=== PATIENT | female | born 1995 | race Hispanic/Latino ===

== ENCOUNTER 2019-01-01 21:47 | Emergency (ER) | payer SELFPAY ==
[2019-01-01 22:03] VITALS: TEMP 98.5; O2SAT 98
--- NOTE | 2019-01-01 22:15 | ED.PDOC ---
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 The vomiting elicited an acute on chronic anxiety attack. The anxiety has mostly resolved by presentation. The attacks usually last about 15-20 minutes. The patient said that she also noticed that her ankles were swollen. She says that this has happened before. She had vague abdominal pain around the time of vomiting. It is supraumbilical. She is unable to describe the quality. She has had multiple previous episodes over the past year that are not associated with any particular timing or context. They usually resolve on their own. She also says that the vomiting only occurs in the evening and has been occurring 3-4 times per week for over a year. She thinks it has to do with the fact that she had a surgical just over a year ago. She denies ever having been screened for diabetes mellitus but she says that her mother has it. No dysur ia/anuria/frequency. No other complaints. Timing/Duration: 1/2 hour Severity: mild Improving Factors: nothing Worsening Factors: nothing Associated Symptoms: other - see HPI Allergies/Adverse Reactions: Allergies NO KNOWN ALLERGY Allergy (Verified 01/01/19 22:03) Home Medications: Ambulatory Orders Sulfa/Trimeth 800/160 (Ds) Tab [Bactrim DS] 1 tablet PO BID #5 tab 01/01/19 Review of Systems - Review of Systems Constitutional: States: no symptoms reported EENTM: States: no symptoms reported Respiratory: States: no symptoms reported Cardiology: States: edema Gastrointestinal/Abdominal: States: see HPI Genitourinary: States: no symptoms reported Musculoskeletal: States: no symptoms reported Skin: States: no symptoms reported Neurological: States: anxiety Endocrine: States: unexplained weight gain Hematologic/Lymphatic: States: no symptoms reported Past Medical History (General) - Patient Medical History Hx Seizures: No Hx Stroke: No Hx Dementia: No Hx Asthma: Yes - childhood Hx of COPD: No Hx Cardiac Disorders: No Hx Congestive Heart Failure: No Hx Pacemaker: No Hx Hypertension: No Hx Thyroid Disease: No Hx Diabetes: No Hx Gastroesophageal Reflux: No Hx Renal Disease: No Hx Cancer: No Hx of HIV: No Hx Hepatitis C: No Hx MRSA: No Surgical History: no surgical history - Vaccination History Hx Tetanus, Diphtheria Vaccination: No Hx Influenza Vaccination: No - Social History Hx Tobacco Use: No Hx Alcohol Use: No Hx Substance Use: No - Female History Patient is a Female of Child Bearing Age (10 -59 yrs old): Yes Patient : No Family Medical History - Family History Mother Family History: Unknown Living Status: Still Living Hx Family Diabetes: Yes Physical Exam - Physical Exam General Appearance: Alert Eye Exam: bilateral normal Ears, Nose, Throat: normal ENT inspection Neck: non-tender, full range of motion, supple Respiratory: chest non-tender, lungs clear, normal breath sounds Cardiovascular/Chest: normal peripheral pulses, regular rate, rhythm, other - trace bipedal edema Gastrointestinal/Abdominal: normal bowel sounds, non tender, soft, other - morbi dly obese Back Exam: normal inspection, no CVA tenderness Extremity: normal range of motion, non-tender, pedal edema Neurologic: commissioner of conciliation II-XII nml as tested, no motor/sensory deficits, alert, normal mood/affect, oriented x 3 Skin Exam: normal color Lymphatic: no adenopathy Progress - Progress Progress: 01/01/19 23:32 Laboratory Tests 01/01/19 01/01/19 01/01/19 22:09 22:12 22:14 WBC 6.5 RBC 4.45 Hgb 13.2 Hct 39.1 MCV 87.8 MCH 29.6 MCHC 33.7 RDW 13.5 Plt Count 243 MPV 9.1 Absolute Neuts (auto) 2.90 Absolute Lymphs (auto) 2.70 Absolute Monos (auto) 0.60 Absolute Eos (auto) 0.30 Absolute Basos (auto) 0.00 Neutrophils % 43.9 Lymphocytes % 41.4 Monocytes % 9.7 H Eosinophils % 4.3 Basophils % 0.7 Sodium Potassium Chloride Carbon Dioxide Anion Gap BUN Creatinine BUN/Creatinine Ratio POC Glucose Random Glucose Hemoglobin A1c Serum Osmolality Calcium Total Bilirubin AST ALT Alkaline Phosphatase B-Natriuretic Peptide Serum Total Protein Albumin Globulin Albumin/Globulin Ratio Lipase TSH Thyroxine (T4) Urine Color Yellow Urine Appearance Cloudy H Urine pH 7.0 Ur Specific [place] 1.020 Urine Protein Trace Urine Glucose (UA) Negative Urine Ketones Negative Urine Blood Trace-intact H Urine Nitrite Negative Urine Bilirubin Negative Urine Urobilinogen 0.2 Ur Leukocyte Esterase Moderate H Urine RBC 1-3 Urine WBC 20-30 H Ur Epithelial Cells 5-10 Urine Bacteria 2+ H Urine Mucus Small Urine HCG, Qual Negative 01/01/19 01/01/19 01/01/19 22:14 22:14 22:14 WBC RBC Hgb Hct MCV MCH MCHC RDW Plt Count MPV Absolute Neuts (auto) Absolute Lymphs (auto) Absolute Monos (auto) Absolute Eos (auto) Absolute Basos (auto) Neutrophils % Lymphocytes % Monocytes % Eosinophils % Basophils % Sodium 138 Potassium 3.1 L Chloride 105 Carbon Dioxide 23 Anion Gap 13.1 BUN 7 Creatinine 0.41 L BUN/Creatinine Ratio 17.1 POC Glucose Random Glucose 125 H Hemoglobin A1c 5.3 Serum Osmolality 275.1 Calcium 8.4 Total Bilirubin 0.5 AST 42 ALT 80 H Alkaline Phosphatase 88 B-Natriuretic Peptide 14.5 Serum Total Protein 7.6 Albumin 3.8 Globulin 3.8 H Albumin/Globulin Ratio 1.0 L Lipase 24 TSH 2.64 Thyroxine (T4) 7.93 Urine Color Urine Appearance Urine pH Ur Specific [place] Urine Protein Urine Glucose (UA) Urine Ketones Urine Blood Urine Nitrite Urine Bilirubin Urine Urobilinogen Ur Leukocyte Esterase Urine RBC Urine WBC Ur Epithelial Cells Urine Bacteria Urine Mucus Urine HCG, Qual 01/01/19 22:20 WBC RBC Hgb Hct MCV MCH MCHC RDW Plt Count MPV Absolute Neuts (auto) Absolute Lymphs (auto) Absolute Monos (auto) Absolute Eos (auto) Absolute Basos (auto) Neutrophils % Lymphocytes % Monocytes % Eosinophils % Basophils % Sodium Potassium Chloride Carbon Dioxide Anion Gap BUN Creatinine BUN/Creatinine Ratio POC Glucose 116 H Random Glucose Hemoglobin A1c Serum Osmolality Calcium Total Bilirubin AST ALT Alkaline Phosphatase B-Natriuretic Peptide Serum Total Protein Albumin Globulin Albumin/Globulin Ratio Lipase TSH Thyroxine (T4) Urine Color Urine Appearance Urine pH Ur Specific [place] Urine Protein Urine Glucose (UA) Urine Ketones Urine Blood Urine Nitrite Urine Bilirubin Urine Urobilinogen Ur Leukocyte Esterase Urine RBC Urine WBC Ur Epithelial Cells Urine Bacteria Urine Mucus Urine HCG, Qual No laboratory results to explain the patient's symptoms. LFTs, BNP, and urine protein were not elevated enough to suggest the liver, kidneys, or heart as a cause of the edema. It is likely gravity dependent edema possibly due to weight gain. Incidental UTI found and Bactrim DS given in the E.D. plus 5 more doses. Potassium was 3.1. Patient given potassium chloride 40 meq po x one. Patient encouraged to follow up with her regular doctor to explore the causes and treatment possibilities for her anxiety. Care instructions given. E.R. warnings given. Questions were elicited and answered. Patient voiced understanding and agreement with the plan. Departure - Departure Clinical Impression: Anxiety, Edema, UTI (urinary tract infection), Nausea & vomiting, Hypokalemia Disposition: Discharge to Home or Self Care Condition: Good Departure Forms: ED Discharge - Pt. Copy, Patient Portal Self Enrollment Diet: low fat, low cholesterol Activity: increase activity as tolerated Prescriptions: Sulfa/Trimeth 800/160 (Ds) Tab [Bactrim DS] 1 tablet PO BID #5 tab Home Medications: Ambulatory Orders Sulfa/Trimeth 800/160 (Ds) Tab [Bactrim DS] 1 tablet PO BID #5 tab 01/01/19 Additional Instructions: Take prescription as directed for your urinary tract infection. See your regular doctor regarding your anxiety and vomiting. Return to the E.R. for worsening symptoms.
[2019-01-01] MEDS ORDERED: SULFA/TRIMETH 800/160 (DS) TAB 1 EA TAB PO ONE (23:20)
[2019-01-01] MEDS ORDERED: POTASSIUM CHLORIDE 20 MEQ TAB PO ONE (23:26)
[2019-01-01 23:45] VITALS: BP 123/97
== END 2019-01-01 23:45 | disposition home or self-care (01) ==
LOC: ER 21:47
DX: F41.9 Anxiety disorder, unspecified (principal); R60.0 Localized edema; N39.0 Urinary tract infection, site not specified; R11.2 Nausea with vomiting, unspecified; E87.6 Hypokalemia